=== PATIENT | female | born 1945 | race Caucasian/White ===

== ENCOUNTER 2019-08-11 14:49 | Inpatient (IN) ==
[2019-08-11] MEDS ORDERED: DUONEB (A & A) INH ONE (15:04)
--- NOTE | 2019-08-11 15:11 | PROVIDER DOCUMENTATION ---
HPI-General Adult - General Chief Complaint: Shortness of Breath Stated Complaint: SOB Time Seen by Provider: 08/11/19 15:25 Source: patient, family (sister) Allergies/Adverse Reactions: Patient Allergies Allergy/AdvReac Type Severity Reaction Status Date / Time ampicillin AdvReac RASH Verified 08/11/19 14:45 Home Medications: Home Medication List Medication Instructions Recorded Confirmed Last Taken Type Albuterol [Albuterol Neb] 2.5 mg INH [id number] 08/11/19 08/11/19 Unknown History Alendronate [Fosamax] 70 mg PO Q7D 08/11/19 08/11/19 Unknown History Benzonatate 200 mg PO TID 08/11/19 08/11/19 Unknown History CefDINIR [Omnicef] 300 mg PO BID 08/11/19 08/11/19 Unknown History Mupirocin Cream [Bactroban Cream] 1 applicatn TOP TID 08/11/19 08/11/19 Unknown History Phenylephrine HCl/Prometh HCl 2 tsp PO PRN PRN 08/11/19 08/11/19 Unknown History [Promethazine Vc Syrup] Phenytoin [Dilantin] 100 mg PO TID 08/11/19 08/11/19 Unknown History Primidone [Mysoline] 250 mg PO DAILY 08/11/19 08/11/19 Unknown History Ranitidine HCl 150 mg PO BID 08/11/19 08/11/19 Unknown History - History of Present Illness -Gen Adult Nature of Presenting Problems: pt with h/o seizures, copd on 3 liter home 02 is being evaluated here today after a fall today. Sister states she ambulated to the bathroom on a walker and hard a fall. Patient is awake, hard of hearing and could not states why and how she fell. She reports pain to the left hip which was previous site of surgery. She is noted to be tachycardia with pulse ox in the 80s on 3 to 4 liters Location of Pain/Injury: reports: lower extremity Quality of Pain: reports: aching, stabbing Onset/Duration: reports: 1-3 hours ago Timing: reports: still present Modifying Factors: improves with: nothing Associated Symptoms: reports: shortness of breath Similar Symptoms Previously?: Yes Recently seen or treated by another doctor?: Yes Review of Systems - Adult - REVIEW OF SYSTEMS - ADULT Constitutional: reports: no symptoms reported Eyes: reports: no symptoms reported Ears, Nose, Mouth & Throat: reports: no symptoms reported Cardiovascular: reports: no symptoms reported Respiratory: reports: shortness of breath. denies: cough, hemoptysis Gastrointestinal: reports: no symptoms reported Genitourinary: reports: no symptoms reported Musculoskeletal: reports: see HPI Integumentary: reports: no symptoms reported Neurological: reports: no symptoms reported Psychiatric: reports: no symptoms reported Endocrine: reports: no symptoms reported Hematologic/Lymphatic: reports: no symptoms reported Allergic/Immunologic: reports: no symptoms reported All Other Systems: Reviewed and Negative Past History - Adult - PAST MEDICAL HISTORY-ADULT Review of Records: reports: Nursing Assessment Review, Medications Reviewed, Social history reviewed & non-contributory. Major Childhood Illnesses: reports: other (meningitis, childhood leaving to residual seizures) Cardiovascular: reports: denies history Respiratory: reports: COPD Genitourinary: reports: denies history Musculoskeletal: reports: other (s/p R hip surgery) Neurological: reports: denies history Psychiatric: reports: denies history Endocrine/Immune: reports: denies history - PRIOR SURGERIES/PROCEDURES Surgical/Procedure History: reports: joint replacement - FAMILY HISTORY Family History: reviewed, not pertinent - SOCIAL HISTORY Smoking: quit greater than 1 year (used to be a heavy smoker) Substance Use: none/never Alcohol Use Frequency: never Living Situation: family Physical Exam-General - PHYSICAL EXAM-ADULT Initial Vital Signs Reviewed: Yes - CONSTITUTIONAL General Appearance: alert, mild distress - EYES Eyes: PERRL/EOMI - HEAD, EARS, NOSE, MOUTH & THROAT HENMT: normocephalic/atraumatic, other (slightly dry oral mucosa) - NECK Neck: non-tender, full range of motion - RESPIRATORY Respiratory: chest non-tender, decreased breath sounds - CARDIOVASCULAR Cardiovascular: regular rate, rhythm, no edema, tachycardia - GASTROINTESTINAL (ABDOMEN) Abdominal Exam: non tender, soft, no organomegaly - MUSCULOSKELETAL Back Exam: normal inspection, no CVA tenderness, no vertebral tenderness Extremity: non-tender, no pedal edema - SKIN Integumentary: normal color - NEUROLOGIC Neurologic: motorized squad captain II-XII nml as tested - PSYCHIATRIC Psych/Mental Status: oriented x 3 Progress - PLAN OF CARE/RESULTS Progress/Plan/Lab Results: Vital Signs - 8 hr 08/11/19 14:45 Temperature 98.9 F Pulse Rate 106 H Respiratory Rate 33 H Blood Pressure 127/78 O2 Sat by Pulse Oximetry 88 L Orders Category Date Time Status Cardiac Monitoring DIRECTED Care 08/11/19 14:53 Active IV Insertion ORDERED Care 08/11/19 14:53 Active Notify MD of + Sepsis Screen NOW Care 08/11/19 14:53 Active Notify Physician As Ordered Care 08/11/19 14:53 Active CHEST-1 VIEW [RAD] Stat Exams 08/11/19 14:53 Ordered XRAY HIP W/O PELVIS MANSOOR 3-4VWS [RAD] Stat Exams 08/11/19 15:01 Ordered ABG [RESP] Routine Lab 08/11/19 14:54 Ordered BLOOD CULTURE [BLDCUL] Stat Lab 08/11/19 14:53 Uncollected CBC WITH DIFF [HEME] Stat Lab 08/11/19 14:53 Uncollected CK PROFILE [SP CHEM] Stat Lab 08/11/19 14:53 Uncollected COMPREHENSIVE METABOLIC PANEL [CHEM] Stat Lab 08/11/19 14:53 Uncollected LACTATE, PLASMA [CHEM] Q3H Lab 08/11/19 15:00 Uncollected LACTATE, PLASMA [CHEM] Q3H Lab 08/11/19 18:00 Uncollected LACTATE, PLASMA [CHEM] Q3H Lab 08/11/19 21:00 Uncollected MAGNESIUM [CHEM] Stat Lab 08/11/19 14:54 Uncollected PROTIME WITH INR [COAG] Stat Lab 08/11/19 14:53 Uncollected PTT [COAG] Stat Lab 08/11/19 14:53 Uncollected TROPONIN T Stat Lab 08/11/19 14:53 Uncollected URINALYSIS W/POSS RFLX CULT [URINALYSIS] Stat Lab 08/11/19 14:53 Uncollected Albuterol 2.5MG/Ipratrop 0.5MG [Duoneb (A & A)] Med 08/11/19 15:04 Once 3 ml INH NOW ONE Aerosol Treatments Routine Oth 08/11/19 15:04 Ordered Aerosol Treatments Stat Oth 08/11/19 15:04 Ordered Oxygen Device Stat Oth 08/11/19 14:53 Active EKG [EKG] Stat Ther 08/11/19 15:01 Ordered Result Diagrams: 08/11/19 16:07 08/11/19 16:07 - REASSESSMENT Reassessment #1 Time Reassessed: 17:35 Status: improving (patient seen, needing up to 5 to 6 liter 02 NC to keep her spo2 to the 90,s. it sdesaturates to the mid to low 80s on 3 to 4 liters. will have her on bipap. Discussed her cxr and xray pelvis result and the need for admission and ortho culsult. Patient is okay with it. She is started on vanco only for now as she is developes severe rash to ampicillin. addition of zosyn, cefipine were considered) - XRAY 1 XRAY: Left XRAY Study: Hip (Department of Imaging Patient: SILVIOEDITHADM Date: 08/11/19#: [id number] : 1945DM [id number] Age/Sex: 73/FRoom/Bed: Loc: ED Ordering Physician: Sherwin Barriga MD Family Physician: None,PCP Reason for Procedure: fall with hip pain Signed EXAM: XRAY HIP W/PELVIS BILAT 3-4VWS 08/11/2019 HISTORY: fall with hip pain TECHNIQUE: AP pelvis and left hip COMMENT: There our fractures in the superior and inferior pubic ramus. The femora appear to be intact. IMPRESSION: Fractures of the left pubic rami as described. Electronically signed by Fredis Leiva 08/11/2019 3:36 PM) 2 XRAY Study: Chest ( EXAM: CHEST-1 VIEW 08/11/2019 HISTORY: SOB TECHNIQUE: AP portable upright at 1504 COMMENT: There are no previous studies. There is volume loss on the left and opacification of much of the left lung. There is patchy opacity present in the right upper and lower lobes. IMPRESSION: Pulmonary edema versus pneumonia. Pleural and parenchymal opacity on the left. Advise comparison with previous studies if available. Electronically signed by Fredis Leiva 08/11/2019 3:26 PM) - CONSULTS/PCP/HOSPITALIST Notification #1 *Consult/PCP/Hospitalist*: ZACHARY Kemp for hospitalist Time Discussed: 17:50 Consult Disposition: Admit (for hospitalist) #2 Consult: Roque Perkins Time Discussed: 17:35 Reason/Comments: pelvic fracture Consult Disposition: other (will see pt) Departure - Departure Date of Disposition Decision: 08/11/19 Time of Disposition Decision: 17:49 DIAGNOSIS: Hypoxemia Pneumonia Qualifiers: Pneumonia type: due to unspecified organism Laterality: bilateral Lung location: lower lobe of lung Qualified Code(s): J18.1 - Lobar pneumonia, unspecified organism Pubic ramus fracture Qualifiers: Encounter type: initial encounter Fracture type: closed Laterality: left Qualified Code(s): S32.592A - Other specified fracture of left pubis, initial encounter for closed fracture Disposition: ADMITTED INPATIENT 09 Certified Medical Emergency: Emergent Condition: Fair - Critical Care Note This patient required my direct & personal management of CC.: No Attestation - Physician/ JOHNSON Attestation Patient care was provided by Advanced Practice Provider:: No The physician spent face to face time with patient:: Yes Advanced Practice Provider documentation review:: Supervising physician onsite and consulted in the evaluation and care of this patient. The physician did have a face to face encounter with the patient.
[2019-08-11] MEDS ORDERED: ZOFRAN IM ONE (15:17)
[2019-08-11] MEDS ORDERED: MORPHINE IV ONE (15:17)
--- NOTE | 2019-08-11 15:29 | Diag Imaging Result Doc PS360 ---
EXAM: CHEST-1 VIEW 08/11/2019 HISTORY: SOB TECHNIQUE: AP portable upright at 1504 COMMENT: There are no previous studies. There is volume loss on the left and opacification of much of the left lung. There is patchy opacity present in the right upper and lower lobes. IMPRESSION: Pulmonary edema versus pneumonia. Pleural and parenchymal opacity on the left. Advise comparison with previous studies if available. Electronically signed by Fredis Leiva 08/11/2019 3:26 PM
[2019-08-11 15:37] LABS: URINE SOURCE CATH
--- NOTE | 2019-08-11 15:38 | Diag Imaging Result Doc PS360 ---
EXAM: XRAY HIP W/PELVIS BILAT 3-4VWS 08/11/2019 HISTORY: fall with hip pain TECHNIQUE: AP pelvis and left hip COMMENT: There our fractures in the superior and inferior pubic ramus. The femora appear to be intact. IMPRESSION: Fractures of the left pubic rami as described. Electronically signed by Fredis Leiva 08/11/2019 3:36 PM
[2019-08-11 15:39] LABS: BILIRUBIN URINE NEGATIVE (NEGATIVE); BLOOD URINE NEGATIVE (NEGATIVE); COLOR YELLOW; GLUCOSE URINE NEGATIVE (NEGATIVE); KETONE URINE NEGATIVE (NEGATIVE); LEUKOCYTES URINE TRACE (NEGATIVE); NITRITE URINE NEGATIVE (NEGATIVE); PH URINE 6.5; PROTEIN URINE 70 mg/dL (NEGATIVE); SP GRAVITY URINE 1.023; TURBIDITY URINE HAZY (CLEAR); UROBILINOGEN URINE NORMAL (NORMAL)
[2019-08-11 15:41] LABS: UR EPITHELIAL CELLS <10 /HPF (<10); URINE BACTERIA NEGATIVE /HPF; URINE WBC <10 /HPF (<10)
[2019-08-11 15:49] LABS: ALLEN TEST YES; BE 8.1 mmoll (-3.0-3.0); BLOOD TYPE ARTERIAL; HCO3-(ACT) 31.1 mmoll (20.0-26.0); METHB 0.8 % (0.0-1.5); O2HB 90.1 % (95.0-99.0); PCO2(98.6) 49 mmHg (35-45); PO2(98.6) 57 mmHg (60-100); SAMPLE BLOOD; SAO2 92.2 % (95.0-100.0); THB 10.2 g/dL (11.5-17.4); pH(98.6) 7.44 (7.35-7.45)
[2019-08-11 15:50] LABS: MODALITY CANNULA
[2019-08-11 16:28] LABS: BASO# 0.04 X1000 (0.0-0.2); BASO% 0.2 % (0.0-0.8); HEMATOCRIT 32.3 % (37.0-47.0); HEMOGLOBIN 9.9 g/dL (12.0-16.0); IMM GRAN# 0.21 X1000 (0.0-0.04); LYMPH# 1.71 X1000 (1.2-3.4); LYMPH% 8.4 % (20.5-51.1); MCH 26.8 PG (27-31); MCHC 30.7 g/dL (33-37); MCV 87.5 FL (81-99); MONO# 2.98 X1000 (0.11-0.59); MONO% 14.6 % (1.7-9.3); MPV 9.1 FL (7.4-10.4); NEUT# 15.52 X1000 (1.4-6.5); NEUT% 75.8 % (42.2-75.2); PLT 352 X1000 (130-400); RBC 3.69 XMIL (4.2-5.4); RDW 16.3 % (11.5-14.5); WBC 20.46 X1000 (4.8-10.8)
[2019-08-11 16:33] LABS: INR 1.43; PROTIME 17.7 Seconds (11.0-16.0)
[2019-08-11 16:45] LABS: AGAP 14; ALBUMIN 3.1 g/dL (3.5-5.0); ALKALINE PHOSPHATASE 75 U/L (32-104); BUN 14 mg/dL (8-22); CALCIUM 8.8 mg/dL (8.8-10.2); CHLORIDE 97 mmol/L (98-107); CK PROFILE 30 U/L (24-173); COSMO 283; CREATININE 0.5 mg/dL (0.5-0.9); ESTIMATED GFR > 60; GLUCOSE 115 mg/dL (70-104); GOT 26 U/L (10-30); GPT 14 U/L (10-36); MAGNESIUM 2.1 mg/dL (1.5-2.7); POTASSIUM 3.6 mmol/L (3.5-5.1); SODIUM 141 mmol/L (136-145); TCO2 30 mmol/L (25-35); TOTAL BILIRUBIN 0.31 mg/dL (0.20-1.00); TOTAL PROTEIN 6.1 g/dL (6.3-8.3)
[2019-08-11 16:55] LABS: PTT 36.6 Seconds (22.3-41.8)
[2019-08-11] MEDS ORDERED: LEVAQUIN 750 MG/D5W 750 MG/150 ML IVPB IV ONE (17:05)
[2019-08-11] MEDS ORDERED: VANCOMYCIN 1 GM/NS 1 GM/250 ML IVPB IV ONE (17:12)
[2019-08-11] MEDS ORDERED: VANCOMYCIN IV PER PHARMACY MISC SCH (18:00)
[2019-08-11] MEDS: NS 1,000 ML IV SCH (18:50)
[2019-08-11] MEDS: MAXIPIME 1 GM in NS 50 ML IV SCH (18:51)
[2019-08-11] MEDS: MUCOMYST 20% INH SCH (19:16)
[2019-08-11] MEDS: PULMICORT INH SCH (19:16)
[2019-08-11] MEDS: ATROVENT NEB INH SCH ×2 (19:16→23:10)
[2019-08-11] MEDS: XOPENEX NEB INH SCH ×2 (19:16→23:10)
--- NOTE | 2019-08-11 19:32 | HISTORY AND PHYSICAL ---
PRIMARY CARE PROVIDER: Dimitris Zaman. CHIEF COMPLAINT: Fall with hip pain, and congestion, shortness of breath, and weakness. HISTORY OF PRESENT ILLNESS: Ms. Kiki Francisco is a 73-year-old, female, with a medical history of COPD, on continuous 3 L of oxygen. Also, history of meningitis when she was 1 years old, which has caused her to have seizures, with her last one being 4 months ago. She also has frequent falls. She is hard of hearing, has cataracts and macular degeneration. Apparently, 2 days ago, she had a fall in the bathroom and since then, she has really not gotten around as well. She would moan in pain when she would get up to use the restroom. She lives with her sister who noticed that today she was specifically very weak and short of breath. She called an ambulance and she was found to have lower O2 saturations in the 80s and they brought her here. The increased her oxygen. It is noted that she has been having some really thick, green phlegm. Denies fever. The sister did state that yesterday, she had called the patient's physician who then called her in an antibiotic, cefdinir, which she initially started last night, so she took a dose last night and this morning. Imaging obtained reveals that she has a fracture of the left pubic rami and then on the chest x-ray, she has pulmonary edema versus pneumonia. She was started on antibiotics. Dr. Perkins is aware of the pubic rami fracture. The D-dimer is elevated with normal kidney functions. We are going to send her for CTA of the lungs. We will also scan her lower extremities to rule out DVT. She is requiring a lot more oxygen. We will treat her COPD. We will consult Pulmonology and it could be possible that she might need BiPAP. PAST MEDICAL HISTORY: 1. COPD, on 3 L of oxygen. 2. At 1 years old, meningitis. 3. Seizures since she was 1 years old, with the last being 4 months ago. On antiepileptic drugs. 4. GERD. 5. Falls. 6. Cataracts. 7. Macular degeneration. 8. Hard of hearing. 9. Anorexia. SURGICAL HISTORY: 1. She had exploratory laparoscopy for abdominal abscess 25 years ago. 2. Left femoral fracture repair. SOCIAL HISTORY: She has been using a walker for about 10 years. She lives with her sister. She quit smoking 12 years ago. She was a heavy smoker and started in her youth. No illicit drug use. No alcohol. FAMILY HISTORY: Mother had brain aneurysm. Father had lung cancer. ALLERGIES: Amoxicillin causes a rash. HOME MEDICATIONS: 1. Albuterol inhaled 4 times a day. 2. Bactroban topical 3 times a day. 3. Benzonatate 200 mg p.o. t.i.d. 4. Dilantin 100 mg p.o. twice daily. 5. Fosamax 70 mg p.o. every 7 days. 6. Primidone 250 mg p.o. daily. 7. Cefdinir 300 mg p.o. twice daily. 8. Promethazine syrup 2 teaspoons p.o. as needed. 9. Ranitidine 150 mg p.o. twice daily. REVIEW OF SYSTEMS: A 14-point review of systems is complete and all were negative, except for those mentioned above in HPI. PHYSICAL EXAMINATION: VITAL SIGNS: Temperature 98.9 degrees, heart rate 106, respiratory rate 30, blood pressure 139/69, O2 saturation 97% on 6 L nasal cannula, and in the room while I was there, she was 98% to 99% with a good waveform. She was just tachypneic. GENERAL: Ms. Kiki Francisco is a 73-year-old, female. She is very emaciated, does not really talk or answer questions much. She will look at you and smile. HEENT: Atraumatic, normocephalic. Pupils are equal and reactive. Extraocular movements intact. Mucous membranes are dry. NECK: Trachea midline. CARDIOVASCULAR: S1, S2. Tachycardic rate and rhythm. No rubs, gallops, murmurs. No lower extremity edema. Dorsalis and radial pulses 2+. Negative for JVD or carotid bruits. PULMONARY: Coarse bilaterally anterior upper and lower lobes. Tolerating 6 L nasal cannula. She is tachypneic. No accessory muscle use noted. There is some mild work of breathing. GASTROINTESTINAL: Soft, nontender, nondistended. Positive bowel sounds x4. EXTREMITIES: Decreased range of motion of all extremities, specifically in the lower extremities. SKIN: Warm, dry, intact. NEUROLOGIC: She is oriented to name, that is about it. LABORATORY DATA: White blood cells 20,000, hemoglobin 9, hematocrit 32, platelet count 352,000. INR is 1.43, PTT is 36.6. D-dimer is 2.85. ABGs, pH 7.44, pCO2 of 49, PO2 of 57, bicarbonate 31, base excess 8, saturation 90%, lactate 1.0. This is on 4 L nasal cannula. Sodium 141, potassium 3.6, BUN 14, creatinine 0.5, glucose 115, calcium 8.8, magnesium 2.1, bilirubin 0.31, AST 26, ALT 14. CK 30, troponin less than 0.01. ProBNP 623. Albumin is 3.1. Serum lactate 1.4. Urinalysis, 70 protein, trace leukocytes, less than 10 white blood cells, 10 to 20 red blood cells, and bacteria is negative. IMAGING: Chest x-ray: Pulmonary edema versus pneumonia. There is also volume loss on the left and opacification of much of the left lung. There is pleural and parenchymal opacity on the left. Hip and pelvic x-ray: Fractures of the left pubic rami. ASSESSMENT AND PLAN: 1. Acute on chronic hypoxemic respiratory failure requiring increased oxygen needs, likely secondary to pneumonia, but could be pulmonary emboli as the D-dimer is elevated, but we currently have no imaging to review for that. We are going to do antibiotics, nebulizers, and steroids. We will also consult Pulmonary, and if needed, we can do BiPAP. She has mild work of breathing. She is a little tachypneic as well. 2. Chronic obstructive pulmonary disease exacerbation, primarily with hypoxia and some CO2 retention as well. Continue oxygen therapy, nebulizers, and steroids. 3. Elevated D-dimer in the setting of someone that is not very active that had an acute shortness of breath. So, we are going to get a pulmonary CTA to rule out pulmonary embolus. We will also get lower extremity venous ultrasound. Depending on results, we will start anticoagulation if needed. 4. On the chest x-ray, there is a left opacity on the lung and we are going to follow up with the CTA. 5. History of seizures. Continue Dilantin. 6. Gastroesophageal reflux disease. Continue ranitidine. 7. Frequent falls and frequent fractures in the past. 8. Left pubic rami fracture. Dr. Perkins is aware. Currently, she is bedrest with a Stephenson catheter. 9. She just appears like she could possibly have issues with swallowing, although they deny it, so we will get a swallow evaluation. 10. Hard of hearing, cataracts, and macular degeneration. 11. Anorexia with protein-calorie malnutrition. We will advance her diet as tolerated depending on her swallow. Dictated by LATIA Echevarria for Frank Cho MD cc: LATIA Echevarria MD
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
[2019-08-11] MEDS: SOLU-MEDROL IV SCH (20:21)
[2019-08-11] MEDS: PEPCID PO SCH (21:21)
[2019-08-11] MEDS: TYLENOL PO PRN (21:21)
--- NOTE | 2019-08-11 21:24 | Diag Imaging Result Doc PS360 ---
EXAM: CT ANGIOGRM PULMONARY ARTERIES 08/11/2019 HISTORY: sob; hypoxia; elevated d-dimer TECHNIQUE: This exam was performed using automated exposure control, adjustment of mA or kV according to patient size, and/or use of iterative reconstruction technique. COMMENT: There are no previous studies. 3-D MIPS were performed. There is a left upper lobe parahilar mass measuring over 4 cm in diameter with postobstructive pneumonia. There is a loculated pleural effusion posteriorly. There is debris within the bronchi on the left and partial opacification of the left lower lobe. There is also opacification of the right lower lobe. There is no evidence of pulmonary emboli. The mediastinum is displaced to the left. The aorta is not distended and there is no evidence of dissection. There are multiple calcified nodes present in the right hilum. There is bilateral adrenal hyperplasia. There are granulomata in the liver and spleen. There is COPD. There is some suggestion of interstitial pulmonary edema in the right upper lobe middle lobe and unopacified portions of the lower lobe. There are some old rib fractures bilaterally. There is no evidence of acute bony abnormality. IMPRESSION: Bilateral lower lobe pneumonia. Left upper lobe mass and postobstructive pneumonitis. Electronically signed by Fredis Leiva 08/11/2019 9:22 PM
[2019-08-12] MEDS: XOPENEX NEB INH SCH ×6 (03:05→23:31)
[2019-08-12] MEDS: ATROVENT NEB INH SCH ×6 (03:05→23:31)
[2019-08-12] MEDS: SOLU-MEDROL IV SCH (04:12)
[2019-08-12 04:33] LABS: ALLEN TEST YES; BE 7.1 mmoll (-3.0-3.0); BLOOD TYPE ARTERIAL; HCO3-(ACT) 30.5 mmoll (20.0-26.0); METHB 0.5 % (0.0-1.5); O2(CT) 12.6 mL/dL (15.0-23.0); O2HB 97.1 % (95.0-99.0); PO2(98.6) 141 mmHg (60-100); SAMPLE BLOOD; SAO2 98.3 % (95.0-100.0); pH(98.6) 7.25 (7.35-7.45)
[2019-08-12 04:36] LABS: MODALITY PRB; PCO2(98.6) 82 mmHg (35-45)
[2019-08-12] MEDS: MAXIPIME 1 GM in NS 50 ML IV SCH ×2 (06:12→17:46)
[2019-08-12 06:59] LABS: AGAP 11; ALB/GLOB RATIO 0.7; ALBUMIN 2.6 g/dL (3.5-5.0); ALKALINE PHOSPHATASE 115 U/L (32-104); BUN 12 mg/dL (8-22); CALCIUM 8.5 mg/dL (8.8-10.2); CHLORIDE 101 mmol/L (98-107); COSMO 280; CREATININE 0.4 mg/dL (0.5-0.9); ESTIMATED GFR > 60; GLUCOSE 121 mg/dL (70-104); GOT 23 U/L (10-30); GPT 13 U/L (10-36); POTASSIUM 3.9 mmol/L (3.5-5.1); SODIUM 140 mmol/L (136-145); TCO2 28 mmol/L (25-35); TOTAL BILIRUBIN 0.21 mg/dL (0.20-1.00); TOTAL PROTEIN 6.5 g/dL (6.3-8.3)
[2019-08-12 07:05] LABS: BASO# 0.02 X1000 (0.0-0.2); BASO% 0.1 % (0.0-0.8); HEMATOCRIT 32.5 % (37.0-47.0); HEMOGLOBIN 9.7 g/dL (12.0-16.0); IMM GRAN# 0.13 X1000 (0.0-0.04); IMM GRAN% 0.8 % (0.0-0.5); LYMPH# 0.91 X1000 (1.2-3.4); LYMPH% 5.5 % (20.5-51.1); MCH 26.8 PG (27-31); MCHC 29.8 g/dL (33-37); MCV 89.8 FL (81-99); MONO# 1.33 X1000 (0.11-0.59); MPV 9.2 FL (7.4-10.4); NEUT% 85.6 % (42.2-75.2); PLT 325 X1000 (130-400); RBC 3.62 XMIL (4.2-5.4); RDW 16.6 % (11.5-14.5); WBC 16.69 X1000 (4.8-10.8)
[2019-08-12 08:21] LABS: ALLEN TEST YES; BE 4.9 mmoll (-3.0-3.0); BLOOD TYPE ARTERIAL; HCO3-(ACT) 28.7 mmoll (20.0-26.0); METHB 0.4 % (0.0-1.5); O2(CT) 16.1 mL/dL (15.0-23.0); O2HB 96.6 % (95.0-99.0); PO2(98.6) 90 mmHg (60-100); SAMPLE BLOOD; SAO2 98.5 % (95.0-100.0); SRATE 15 BPM; THB 11.8 g/dL (11.5-17.4); pH(98.6) 7.36 (7.35-7.45)
[2019-08-12 08:23] LABS: MODALITY BI PAP
[2019-08-12 08:26] LABS: PCO2(98.6) 56 mmHg (35-45)
[2019-08-12] MEDS: MUCOMYST 20% INH SCH ×2 (08:33→19:44)
[2019-08-12] MEDS: PULMICORT INH SCH ×2 (08:33→19:44)
--- NOTE | 2019-08-12 10:03 | PROVIDER PROGRESS NOTE ---
Progress Note Pulmonary additional note: Full Consult dictation to follow. I have seen the case, reviewed the EMR, labs, latest images and other medical teams notes. Also reviewed the PIPELAYING FITTER notes and signed necessary form(s). I have noted changes in condition if any from yesterday and did orders if needed. Please see also signed progress sheet. Prognosis: Guarded for now. Improving with Bipap I reviewed Dr. Godfrey and LATIA Echevarria notes. CT images seen. Respiratory failure. Lung mass and COPD. Will review further best route for biopsy wether CT guided or bronchoscopy. Will decide once more stable. This was discussed with her sister. I asked senior staff specialized employment about condition changes and if they have any needs in regard to today conditions. I spent 32 minutes in this process.
[2019-08-12] MEDS: BACTROBAN CREAM TOP SCH ×3 (10:09→17:46)
[2019-08-12] MEDS: PEPCID PO SCH ×2 (10:10→21:11)
[2019-08-12] MEDS: DILANTIN PO SCH ×3 (10:10→17:46)
[2019-08-12] MEDS: MYSOLINE PO SCH (10:10)
--- NOTE | 2019-08-12 10:39 | PROGRESS NOTE ---
DATE: 08/12/2019 SUBJECTIVE: This patient had a tough night. Apparently, she was not able to sleep too good because she needed to use the BiPAP machine, and her cough. Her phlegm is quite thick. She is sleepy at this moment, but arousable, but she is falling asleep right away. We did a CT angiogram yesterday that showed bilateral lower lobe pneumonia and also showed a left upper lobe mass and postobstructive pneumonitis. I discussed the case with the Power of Recooperer, who is at the bedside, and after discussing the case for more than 20 minutes, she has decided to code this patient DO NOT RESUSCITATE. Also, I will consult Palliative Care to evaluate this patient. The Power of Recooperer does not want to do any kind of invasive procedure for this patient, but she wants to get treatment for the pneumonia to see if she can get somehow better. OBJECTIVE: Vital Signs: Temperature 97.8 degrees, pulse 92, respiratory rate 25, blood pressure 103/54, oxygen saturation 97% on the BiPAP machine. HEENT: Head normocephalic. No trauma. Neck: Supple. No JVD. No masses. Central trachea. Chest: Decreased breath sounds on the left side with crepitus. Bilateral lower lobe rhonchi. Coarse breath sounds on the left side as well. Abdomen: Soft, nontender, nondistended. No hepatosplenomegaly. Extremities: No edema, no clubbing, no cyanosis. Neurological: The patient is sleepy at this moment. Yesterday, she was oriented only to name. LABORATORY DATA: WBC 16.6, hemoglobin 9.7, hematocrit 32.5, platelets 325,000. Sodium 140, potassium 3.9, chloride 101, bicarbonate 28, BUN 12, creatinine 0.4, glucose 121, calcium 8.5, albumin 2.6. ASSESSMENT AND PLAN: 1. Sepsis due to pneumonia. Will continue with broad-spectrum antibiotics. Also, will continue with intravenous fluids. Vital signs are stable, except that she is tachypneic and on and off tachycardic. Breathing treatment, oxygen supplementation. 2. Left upper lobe mass and postobstructive pneumonitis. This is likely malignancy. I discussed the case with her Power of Recooperer, who is at the bedside, and after discussing with her about advanced directive for more than 20 minutes, she has decided to put this patient DO NOT RESUSCITATE and consult Palliative Care. Likely, this patient will be discharged once she is a little bit better, to home with hospice. 3. Bilateral lower lobe pneumonia. Continue with broad-spectrum antibiotics. 4. History of chronic obstructive pulmonary disease, on home oxygen, around 3 liters. Continue with the same treatment, breathing treatment. I have decreased the dose of the steroids. She is not wheezing today. 5. Elevated D-dimer with negative CT angiogram. No pulmonary embolism. 6. History of seizures. Continue with Dilantin. 7. Gastroesophageal reflux disease. Continue with ranitidine. 8. Frequent falls. Aware. 9. Left pubic rami fracture. I do not think she is going to get any kind of intervention. We will monitor. 10. This patient is DO NOT RESUSCITATE level 1. 11. Anorexia with severe protein calorie malnutrition. Aware. 12. This patient is hard of hearing. She has cataracts and macular degeneration. Her prognosis is poor. She does have a left upper mass. The Power of Recooperer does not want to do any kind of aggressive intervention. No biopsy. She wants to treat the pneumonia, and Palliative Care will be on board. cc: Frank Cho MD
--- NOTE | 2019-08-12 10:46 | ORTHOPAEDICS CONSULTATION ---
DATE: 08/12/2019 CHIEF COMPLAINT: Pelvic pain. HISTORY OF PRESENT ILLNESS: This is a 73-year-old female who fell, was admitted to the hospital for pneumonia, and I was asked to see her for her pelvic fractures that they diagnosed on x-ray. She was initially diagnosed with pneumonia, but has subsequently been found to have a pulmonary mass. The family has decided to just perform palliative care. PAST MEDICAL HISTORY: See admission history and physical. PAST SURGICAL HISTORY: See admission history and physical. MEDICATIONS: See admission history and physical. ALLERGIES: See admission history and physical. REVIEW OF SYSTEMS: Negative, except as noted above. PHYSICAL EXAMINATION: Examination of her hip reveals no pain significantly with range of motion. Her legs are neurovascularly intact. IMAGING: Reviewing her x-rays shows nondisplaced superior and inferior rami fractures on the left. IMPRESSION: Left nondisplaced superior and inferior rami fractures. PLAN: I do not think she needs any further orthopedic care. She can weight bear as tolerated if she is able. We can get Physical Therapy to work with her if need be, but due to her other medical issues and the fact that she is on palliative care, it may be that there is nothing further to add at this time. I discussed this with the family and consoled them. cc: Man Perkins MD
[2019-08-12 10:49] LABS: BANDS 8 % (0-1); HYPOCHROM 2+; LYMPHS 4 % (21-51); MONO 6 % (1-9); NRBC 1 % (0-0); SEGS 82 % (42-75)
[2019-08-12] MEDS: NS 1,000 ML IV SCH ×2 (12:02→21:11)
--- NOTE | 2019-08-12 17:38 | EKG Report ---
Test Performed on : 08/12/2019 07:16:17 AM Test Reason : CP Blood Pressure : / mmHG Vent. Rate : 086 BPM Atrial Rate : 086 BPM P-R Int : 134 ms QRS Dur : 084 ms QT Int : 366 ms P-R-T Axes : 073 -35 044 degrees QTc Int : 437 ms Sinus rhythm. with premature supraventricular complexes. Left axis deviation Septal infarct , age undetermined Abnormal ECG No previous ECGs available Unconfirmed Result
--- NOTE | 2019-08-12 21:33 | CONSULTATION ---
DATE OF CONSULTATION: 08/12/2019 CHIEF COMPLAINT: Shortness of breath and weakness. HISTORY OF PRESENT ILLNESS: This is a 73-year-old female with a medical history of meningitis, seizure disorder and COPD on continuous supplemental O2 at 3 L. The patient had been having progressive shortness of breath with O2 saturation dropping into the 80s prior to hospital admit. Recent chest x-ray revealed pulmonary edema versus pneumonia with volume loss on the left and opacification of much of the left lung. PAST MEDICAL HISTORY: 1. COPD on 3 L of oxygen. 2. Meningitis at age 20 years old. 3. Seizures since she was 1. Last one 4 months ago. 4. GERD. 5. Cataracts. 6. Macular degeneration. 7. Hard of hearing. 8. Anorexia. SURGICAL HISTORY: 1. Exploratory laparoscopy for abdominal abscesses 25 years ago. 2. Left femoral fracture repair. SOCIAL HISTORY: Uses a walker for ambulation. Lives with her sister. Past smoker 12 years ago. No illicit drug use or alcohol use. FAMILY HISTORY: Brain aneurysm in her mother. Father had lung cancer. ALLERGIES: Amoxicillin causing a rash. HOME MEDICATIONS: Please see home reconciliation list. REVIEW OF SYSTEMS: A 10-point review of systems was completed and the pertinent is listed within the HPI, otherwise noncontributory. PHYSICAL EXAMINATION: VITAL SIGNS: Blood pressure 113/56, pulse 94, respirations 20, temperature 97.9, O2 saturation 100% on BiPAP 16/6. GENERAL: This is a 73-year-old female resting in bed with BiPAP in use. Moderate distress noted. HEENT: Head is atraumatic, normocephalic. Pupils are equal and reactive to light and accommodation. Mucous membranes dry. NECK: Trachea midline. Neck is supple. CARDIOVASCULAR: S1, S2 auscultated. No gallops, murmurs or rubs. RESPIRATORY: Coarse bilateral diminished breath sounds. Some mild work at breathing. GASTROINTESTINAL: Soft, nontender, nondistended. Positive breath sounds in all 4 quadrants. SKIN: Warm, dry and intact. NEUROLOGIC: Oriented to name. LABORATORY DATA: PH 7.36. PCO2 of 56. PO2 of 90. Bicarbonate 28.7. Oxyhemoglobin 96.6. Sodium 140. Potassium 3.9. Chloride 101. White blood cells 16.69. Platelets 325,000. Hemoglobin 9.7. Hematocrit 32.5. ProBNP 623. Albumin 3.1. Serum lactate 1.4. CK 30. Troponin less than 0.01. AST 26. ALT 14. Calcium 8.8. IMAGING: As mentioned in the HPI. Awaiting CTA scan. ASSESSMENT AND PLAN: 1. Acute on chronic hypoxemic respiratory failure secondary to pneumonia. Continue antibiotics, and bronchodilators, and supplemental O2 and BiPAP therapy. 2. Chronic obstructive pulmonary disease. Continue bronchodilators and supplemental O2. 3. Lung mass. We will review further best route for biopsy whether CT guided or bronchoscopy. We will decide once more stable. Thank you for the courtesy of this consult. Dictated by LATIA Kirk for Cooper Toledo MD cc: LATIA Kirk MD
[2019-08-13] MEDS: TYLENOL PO PRN ×2 (03:08→23:13)
[2019-08-13] MEDS: ATROVENT NEB INH SCH ×6 (03:50→23:18)
[2019-08-13] MEDS: XOPENEX NEB INH SCH ×6 (03:51→23:18)
[2019-08-13] MEDS ORDERED: BLISTEX MEDICATED BERRY LIP BALM TOP PRN (04:43)
[2019-08-13 05:18] LABS: ALLEN TEST YES; BE 4.1 mmoll (-3.0-3.0); BLOOD TYPE ARTERIAL; METHB 0.9 % (0.0-1.5); O2(CT) 16.2 mL/dL (15.0-23.0); O2HB 93.4 % (95.0-99.0); PCO2(98.6) 45 mmHg (35-45); PO2(98.6) 68 mmHg (60-100); SAMPLE BLOOD; SAO2 95.2 % (95.0-100.0); THB 12.3 g/dL (11.5-17.4); pH(98.6) 7.42 (7.35-7.45)
[2019-08-13 05:19] LABS: MODALITY BI PAP
[2019-08-13] MEDS: MAXIPIME 1 GM in NS 50 ML IV SCH ×2 (05:33→18:09)
[2019-08-13] MEDS: PULMICORT INH SCH ×2 (07:19→19:30)
[2019-08-13 08:03] LABS: BASO# 0.02 X1000 (0.0-0.2); BASO% 0.1 % (0.0-0.8); EOS# 0.03 X1000 (0.0-0.7); EOS% 0.2 % (0.0-10.0); HEMATOCRIT 27.9 % (37.0-47.0); HEMOGLOBIN 8.4 g/dL (12.0-16.0); IMM GRAN# 0.16 X1000 (0.0-0.04); LYMPH# 1.42 X1000 (1.2-3.4); LYMPH% 9.2 % (20.5-51.1); MCH 26.5 PG (27-31); MCHC 30.1 g/dL (33-37); MONO% 10.4 % (1.7-9.3); NEUT# 12.14 X1000 (1.4-6.5); NEUT% 79.1 % (42.2-75.2); PLT 318 X1000 (130-400); RBC 3.17 XMIL (4.2-5.4); RDW 16.4 % (11.5-14.5); WBC 15.37 X1000 (4.8-10.8)
[2019-08-13 08:34] LABS: AGAP 12; ALB/GLOB RATIO 0.7; ALBUMIN 2.3 g/dL (3.5-5.0); ALKALINE PHOSPHATASE 64 U/L (32-104); BUN 8 mg/dL (8-22); CHLORIDE 101 mmol/L (98-107); COSMO 277; CREATININE 0.3 mg/dL (0.5-0.9); ESTIMATED GFR > 60; GLUCOSE 85 mg/dL (70-104); GOT 23 U/L (10-30); GPT 14 U/L (10-36); SODIUM 140 mmol/L (136-145); TCO2 27 mmol/L (25-35); TOTAL BILIRUBIN 0.27 mg/dL (0.20-1.00); TOTAL PROTEIN 5.6 g/dL (6.3-8.3)
[2019-08-13] MEDS: MYSOLINE PO SCH (09:17)
[2019-08-13] MEDS: DILANTIN PO SCH ×3 (09:17→18:09)
[2019-08-13] MEDS: PEPCID PO SCH ×2 (09:18→21:14)
[2019-08-13] MEDS: SOLU-MEDROL IV SCH (09:18)
[2019-08-13] MEDS: BACTROBAN CREAM TOP SCH ×3 (09:35→18:09)
[2019-08-13] MEDS: MUCOMYST 20% INH SCH ×2 (11:20→19:30)
--- NOTE | 2019-08-13 16:44 | PROVIDER PROGRESS NOTE ---
Progress Note Dr. Toledo Progress Note/Pulmonary and or critical care We appreciated progress of care, Complications, change in diagnosis, and instructions to patient under direct supervision of Dr. Toledo. Subjective: We note the level of consciousness, bed (chair) position, family presence (if any), level of lethargy, feeling of symptoms, and changes from baseline condition/symptom. The patient is lethargic. She is on NRB. Sister at the bedside. She reports that pt just took pain medicine. Sister reports patient took senna at home for constipation. Vital Signs: We reviewed EMR current values for Pulse rate, Blood pressure, Pulse rate, respiratory rate and Pulse oximetry. Also noted other values and trends if present (e.g. I/O, CVP). Vital Signs 08/12/19 19:43 08/12/19 19:55 08/13/19 04:00 Temperature 98.1 F 98.8 F Pulse Rate 66 94 H 100 H Respiratory Rate 20 21 16 Blood Pressure 125/66 120/57 O2 Sat by Pulse Oximetry 96 97 98 08/13/19 07:19 08/13/19 07:56 08/13/19 12:50 Temperature 97.4 F L 98.0 F Pulse Rate 98 H 98 H 113 H Respiratory Rate 18 18 18 Blood Pressure 113/56 125/57 O2 Sat by Pulse Oximetry 92 L 96 92 L Intake & Output 08/12/19 08/13/19 08/13/19 19:59 07:59 19:59 Intake Total 316 / 1616 1300 / 1616 600 / 600 Balance 316 / 1616 1300 / 1616 600 / 600 Intake: Intake, IV Amount 266 / 966 700 / 966 600 / 600 Intake, IVPB 50 / 50 Intake, Oral Amount 600 / 600 Other: Number of Bowel Movements 0 Objective: General and HEENT: Trachea Midline. Chest: Reduced Entry. CVS: S1 S2. Abdomen: Bowel Sounds present. Non-tender. Soft. nondistended. Extremities: No pedal edema Neuro: Lethargic. Labs and Radiology: Reviewed available labs and radiology values available at time of EMR review. Dr. Toledo evaluated and additional note below. Evaluation time in minutes: Less than 30 minutes Assessment: DNRI Respiratory Failure, hypoxic and hypercapnic Lung mass COPD Left pubic rami fracture Anorexia with protein calorie malnutrition Plan Continue current treatment and supportive care per admitting and other teams on the case. Antibiotics Steroids Bronchodilators Appropriate DVT and GI prophylaxis Swallow evaluation Add senno for constipation. Input was appreciated from Admitting MD and other teams on the case.
[2019-08-13] MEDS: NS 1,000 ML IV SCH (18:09)
--- NOTE | 2019-08-13 18:15 | PROGRESS NOTE ---
DATE: 08/13/2019 SUBJECTIVE: No big changes compared with yesterday. She is using a nonrebreathing mask. She seems to be tired and sleepy. I had a conversation with her power of patent prosecution attorney at the bedside. She is basically lethargic. OBJECTIVE: Vital Signs: Temperature 98 degrees, pulse 113, respiratory rate 18, blood pressure 125/57, oxygen saturation 92 on a nonrebreathing mask. HEENT: Head normocephalic. No trauma. PERRLA. Neck: Supple. No JVD. No masses. Central trachea. Chest: Decreased breath sounds on the left side with crepitus. Bilateral lower lobe rhonchi. Coarse breath sounds on the left side as well. Abdomen: Soft, nontender, nondistended. No hepatosplenomegaly. Extremities: No clubbing. No cyanosis. Neurological: This patient is lethargic but slightly arousable. She did not follow commands for me today. LABORATORY: WBC 15.3, hemoglobin 8.4, hematocrit 27.9, platelets 318,000. Sodium 140, potassium 3, chloride 101, bicarbonate 27, BUN 8, creatinine 0.3, glucose 85, calcium 8, albumin 2.3. ASSESSMENT AND PLAN: 1. Sepsis due to pneumonia. We will continue with broad spectrum antibiotics. Also we will continue with IV fluids. She is a little bit tachycardic. Continue breathing treatments, oxygen supplementation. Pulmonary Department on board. 2. Left upper lobe mass and postobstructive pneumonitis. Likely this is malignancy. I discussed the case with her power of patent prosecution attorney who has been always at the bedside and this patient is DNR level 1. Palliative Care has been consulted and I talked to her today about hospice but she will think about it. 3. Bilateral lower lobe pneumonia. Continue broad-spectrum antibiotics. 4. History of chronic obstructive pulmonary disease, on home oxygen around 3 L. 5. Elevated D-dimer with negative CT angiogram. No pulmonary embolism. 6. History of seizures. Continue with Dilantin. 7. Gastroesophageal reflux disease. Continue with ranitidine. 8. Frequent falls. Aware. 9. Left pubic rami fracture. We will treat this patient medically. If she gets better, we can start doing some physical therapy, but she is extremely weak. 10. This patient is Do Not Resuscitate level 1. 11. Anorexia with severe protein calorie malnutrition. 12. This patient is hard of hearing, cataracts, and macular degeneration. 13. Her prognosis is really poor. She has a left upper lobe mass. The power of patent prosecution attorney does not want to do any kind of aggressive intervention, no biopsy. She wants to treat the pneumonia and Palliative Care will be on board. cc: Frank Cho MD
[2019-08-13] MEDS ORDERED: VANCOMYCIN 1 GM/NS 1 GM/250 ML IVPB IV SCH (20:00)
[2019-08-13] MEDS: SENOKOT PO SCH (21:15)
[2019-08-14] MEDS: XOPENEX NEB INH SCH ×6 (03:54→22:40)
[2019-08-14] MEDS: ATROVENT NEB INH SCH ×6 (03:54→22:40)
[2019-08-14] MEDS: NS 1,000 ML IV SCH ×2 (04:01→11:03)
[2019-08-14] MEDS: MAXIPIME 1 GM in NS 50 ML IV SCH ×2 (05:47→17:30)
[2019-08-14] MEDS: TYLENOL PO PRN ×2 (05:59→11:01)
[2019-08-14] MEDS: MUCOMYST 20% INH SCH ×2 (07:59→19:30)
[2019-08-14] MEDS: PULMICORT INH SCH ×2 (07:59→19:25)
[2019-08-14 08:04] LABS: BASO# 0.02 X1000 (0.0-0.2); BASO% 0.1 % (0.0-0.8); EOS# 0.11 X1000 (0.0-0.7); EOS% 0.7 % (0.0-10.0); HEMATOCRIT 29.5 % (37.0-47.0); IMM GRAN# 0.27 X1000 (0.0-0.04); IMM GRAN% 1.7 % (0.0-0.5); LYMPH# 1.37 X1000 (1.2-3.4); LYMPH% 8.6 % (20.5-51.1); MCH 26.7 PG (27-31); MCHC 30.5 g/dL (33-37); MCV 87.5 FL (81-99); MONO# 1.69 X1000 (0.11-0.59); MONO% 10.6 % (1.7-9.3); MPV 9.1 FL (7.4-10.4); NEUT# 12.45 X1000 (1.4-6.5); NEUT% 78.3 % (42.2-75.2); PLT 377 X1000 (130-400); RBC 3.37 XMIL (4.2-5.4); RDW 16.3 % (11.5-14.5); WBC 15.91 X1000 (4.8-10.8)
[2019-08-14 08:49] LABS: AGAP 18; ALB/GLOB RATIO 0.6; ALBUMIN 2.2 g/dL (3.5-5.0); ALKALINE PHOSPHATASE 84 U/L (32-104); BUN 5 mg/dL (8-22); CALCIUM 8.6 mg/dL (8.8-10.2); CHLORIDE 99 mmol/L (98-107); COSMO 279; CREATININE 0.3 mg/dL (0.5-0.9); ESTIMATED GFR > 60; GLUCOSE 65 mg/dL (70-104); GOT 19 U/L (10-30); GPT 11 U/L (10-36); POTASSIUM 2.7 mmol/L (3.5-5.1); SODIUM 142 mmol/L (136-145); TCO2 25 mmol/L (25-35); TOTAL BILIRUBIN 0.21 mg/dL (0.20-1.00); TOTAL PROTEIN 6.2 g/dL (6.3-8.3)
[2019-08-14] MEDS: SOLU-MEDROL IV SCH (08:58)
[2019-08-14] MEDS: DILANTIN PO SCH ×3 (08:59→17:30)
[2019-08-14] MEDS: SENOKOT PO SCH ×2 (08:59→22:26)
[2019-08-14] MEDS: PEPCID PO SCH ×2 (08:59→22:26)
[2019-08-14] MEDS: MYSOLINE PO SCH (08:59)
[2019-08-14] MEDS: BACTROBAN CREAM TOP SCH ×3 (09:00→22:26)
[2019-08-14 09:30] LABS: LYMPHS 12 % (21-51); SEGS 88 % (42-75)
[2019-08-14] MEDS ORDERED: POTASSIUM CHLORIDE 20% LIQUID PO ONE (11:25)
[2019-08-14] MEDS: NS + KCL 20 MEQ 1,000 ML IV SCH (12:54)
--- NOTE | 2019-08-14 13:09 | PROVIDER PROGRESS NOTE ---
Progress Note Dr. Toledo Progress Note/Pulmonary and or critical care We appreciated progress of care, Complications, change in diagnosis, and instructions to patient under direct supervision of Dr. Toledo. Subjective: We note the level of consciousness, bed (chair) position, family presence (if any), level of lethargy, feeling of symptoms, and changes from baseline condition/symptom. The patient is having dry cough. Sister at the bedside reports she just had a breathing treatment which makes her cough more. Patient is having lunch. She keeps stating I am full I want to sleep. Vital Signs: We reviewed EMR current values for Pulse rate, Blood pressure, Pulse rate, respi ratory rate and Pulse oximetry. Also noted other values and trends if present (e.g. I/O, CVP). Vital Signs 08/13/19 17:01 08/13/19 19:30 08/13/19 20:00 Temperature 98.1 F 99.1 F Pulse Rate 97 H 86 86 Respiratory Rate 19 19 Blood Pressure 132/59 145/68 O2 Sat by Pulse Oximetry 96 92 L 90 L 08/14/19 04:00 08/14/19 08:00 08/14/19 08:20 Temperature 99.5 F 98.5 F Pulse Rate 101 H 99 H 103 H Respiratory Rate 18 20 24 Blood Pressure 161/74 134/62 O2 Sat by Pulse Oximetry 95 96 96 08/14/19 13:10 Temperature 97.9 F Pulse Rate 121 H Respiratory Rate 28 H Blood Pressure 127/82 O2 Sat by Pulse Oximetry 93 L Intake & Output 08/13/19 08/14/19 08/14/19 19:59 07:59 19:59 Intake Total 1190 / 2390 1200 / 2390 600 / 600 Output Total 1974 Balance 315 / 415 100 / 415 600 / 600 Intake: Intake, IV Amount 950 / 1900 950 / 1900 600 / 600 Intake, IVPB 250 / 250 Intake, Oral Amount 240 / 240 0 / 240 Output: Output, Urine [place] Amount 1974 Other: Percent of Meal Consumed Bites Only Number of Bowel Movements 0 0 Objective: We examined the following systems General and HEENT: Trachea Midline. Chest: Reduced Entry. CVS: S1 S2. Abdomen: Bowel Sounds present. Non-tender. Soft. Non-distended. Extremities: No pedal edema Neuro: A/Ox2; speech fluent; follow simple commands at times; weakness present. Labs and Radiology: Reviewed available labs and radiology values available at time of EMR review. Laboratory Results 08/14/19 08/14/19 07:16 07:16 WBC 15.91 H RBC 3.37 L Hgb 9.0 L Hct 29.5 L MCV 87.5 MCH 26.7 L MCHC 30.5 L RDW Std Deviation 16.3 H Plt Count 377 MPV 9.1 Immature Gran % (Auto) 1.7 H Neut % (Auto) 78.3 H Lymph % (Auto) 8.6 L [place] % (Auto) 10.6 H Eos % (Auto) 0.7 Baso % (Auto) 0.1 Immature Gran # (Auto) 0.27 H Neut # (Auto) 12.45 H Lymph # (Auto) 1.37 [place] # (Auto) 1.69 H Eos # (Auto) 0.11 Baso # (Auto) 0.02 Segmented Neutrophils 88 H Lymphocytes 12 L Sodium 142 Potassium 2.7 L Chloride 99 Carbon Dioxide 25 Anion Gap 18 BUN 5 L Creatinine 0.3 L Estimated GFR/1.73 m2 > 60 BUN/Creatinine Ratio 17 Glucose 65 L Calculated Osmolality 279 Calcium 8.6 L Total Bilirubin 0.21 AST 19 ALT 11 Alkaline Phosphatase 84 Total Protein 6.2 L Albumin 2.2 L Globulin 4.0 Albumin/Globulin Ratio 0.6 Dr. Toledo evaluated and additional note below. Evaluation time in minutes: 10 minutes Assessment: DNRI Respiratory Failure, hypoxic and hypercapnic Lung mass COPD Left pubic rami fracture Anorexia with protein calorie malnutrition Plan Continue current treatment and supportive care per admitting and other teams on the case. Antibiotics Steroids Bronchodilators Appropriate DVT and GI prophylaxis Input was appreciated from Admitting MD and other teams on the case.
--- NOTE | 2019-08-14 14:18 | Extremity Venous Study ---
PROCEDURE NAME: Venous U/S Bilateral Legs - 08/12/2019 REQUESTING PROVIDER: Paulo. REPAIRER WOOD FURNITURE: Collette. INDICATIONS: Elevated D-dimer. EQUIPMENT: HALGI Vivid E9 ultrasound system a 9 L-D transducer. FINDINGS: Images of bilateral lower extremity venous systems were obtained in both sagittal and transverse planes. Doppler was used to evaluate veins for spontaneity, phasicity, respiratory excursion, and digital augmentation. RESULTS: Technically difficult study secondary to patient moving throughout the exam per the automotive technician instructor's note but no obvious superficial or deep venous thrombosis noted. INTERPRETATION: Technically difficult study secondary to patient movement but no obvious superficial or deep venous thrombosis noted. cc: MD Wanda Dick CRNP
--- NOTE | 2019-08-14 19:13 | PROGRESS NOTE ---
DATE: 08/14/2019 SUBJECTIVE: No big changes compared with yesterday. She is still using a nonrebreathing mask. She seems to be still tired and sleepy. Apparently, she is eating just some bites. Palliative Care on board. Power of district attorney at the bedside. OBJECTIVE: Vital Signs: Temperature 97.9 degrees, pulse 121, respiratory rate 28, blood pressure 127/82, oxygen saturation 93 on a nonrebreathing mask. HEENT: Head normocephalic, no trauma. PERRLA. Neck: Supple. No JVD. No masses. Central trachea. Chest: Decreased breath sounds on the left side with crepitus, bilateral lower lobe rhonchi, coarse breath sounds on the left side. Abdomen: Soft, nontender, nondistended. No hepatosplenomegaly. Extremities: No clubbing, no cyanosis. Neurological: The patient is lethargic, slightly arousable. As per the power of district attorney, she was able to wake up a little bit and take some bites of food but not for me. LABORATORY: WBC 15.9, hemoglobin 9, hematocrit 29.5, platelets 377,000. Sodium 142, potassium 2.7, chloride 99, bicarbonate 25, BUN 5, creatinine 0.3, glucose 65, calcium 8.6, albumin 2.2. ASSESSMENT AND PLAN: 1. Sepsis due to pneumonia. We will continue with broad-spectrum antibiotics and IV fluids. She is still tachycardic and tachypneic. Oxygen supplementation. Pulmonary Department on board. 2. Left upper lobe mass and postobstructive pneumonitis, likely this is malignancy. The case has been discussed with the power of district attorney, who has been always at the bedside. The patient is DO NOT RESUSCITATE. Palliative Care has been consulted. I already talked to the power of district attorney and the family about hospice, and they are thinking about it. 3. Bilateral lower lobe pneumonia. Continue with broad spectrum antibiotics. 4. History of chronic obstructive pulmonary disease on home oxygen around 3 L. 5. Elevated D-dimer with a negative CT angiogram. No pulmonary embolism. 6. History of seizures. Continue with Dilantin. 7. Gastroesophageal reflux disease. Continue with ranitidine. 8. Frequent falls, aware. 9. Left pubic rami fracture. We will treat this patient medically; no intervention. 10. Anorexia with severe protein-calorie malnutrition. 11. The patient is hard of hearing, cataracts and macular degeneration. 12. This patient is DNR level 1. Her prognosis is poor due to her age, malnutrition, left upper lobe mass. The power of district attorney does not want to do any kind of aggressive intervention including biopsy. We are going to treat this patient and try to keep this patient comfortable. Palliative Care on board. Honestly I would like to send this patient home with hospice. cc: Frank Cho MD
[2019-08-15] MEDS: TYLENOL PO PRN ×2 (01:17→14:52)
[2019-08-15] MEDS: NS + KCL 20 MEQ 1,000 ML IV SCH ×2 (03:00→17:06)
[2019-08-15] MEDS: ATROVENT NEB INH SCH ×6 (03:48→23:35)
[2019-08-15] MEDS: XOPENEX NEB INH SCH ×6 (03:48→23:35)
[2019-08-15] MEDS: MAXIPIME 1 GM in NS 50 ML IV SCH ×2 (05:19→17:12)
[2019-08-15 07:36] LABS: BASO# 0.01 X1000 (0.0-0.2); BASO% 0.1 % (0.0-0.8); EOS# 0.24 X1000 (0.0-0.7); EOS% 1.8 % (0.0-10.0); HEMATOCRIT 28.4 % (37.0-47.0); HEMOGLOBIN 8.6 g/dL (12.0-16.0); IMM GRAN# 0.27 X1000 (0.0-0.04); LYMPH# 1.36 X1000 (1.2-3.4); MCH 26.1 PG (27-31); MCHC 30.3 g/dL (33-37); MCV 86.3 FL (81-99); MONO# 1.03 X1000 (0.11-0.59); MONO% 7.6 % (1.7-9.3); MPV 8.9 FL (7.4-10.4); NEUT# 10.65 X1000 (1.4-6.5); NEUT% 78.5 % (42.2-75.2); PLT 412 X1000 (130-400); RBC 3.29 XMIL (4.2-5.4); RDW 16.1 % (11.5-14.5); WBC 13.56 X1000 (4.8-10.8)
[2019-08-15] MEDS: MUCOMYST 20% INH SCH ×2 (07:54→19:46)
[2019-08-15] MEDS: PULMICORT INH SCH ×2 (08:13→19:46)
[2019-08-15 08:24] LABS: AGAP 8; ALB/GLOB RATIO 0.5; ALKALINE PHOSPHATASE 64 U/L (32-104); BUN 4 mg/dL (8-22); CALCIUM 8.3 mg/dL (8.8-10.2); CHLORIDE 98 mmol/L (98-107); COSMO 273; CREATININE 0.2 mg/dL (0.5-0.9); ESTIMATED GFR > 60; GLUCOSE 109 mg/dL (70-104); GOT 18 U/L (10-30); GPT 10 U/L (10-36); POTASSIUM 3.1 mmol/L (3.5-5.1); SODIUM 138 mmol/L (136-145); TCO2 32 mmol/L (25-35); TOTAL BILIRUBIN 0.22 mg/dL (0.20-1.00); TOTAL PROTEIN 5.8 g/dL (6.3-8.3)
[2019-08-15] MEDS: PEPCID PO SCH ×2 (09:06→21:58)
[2019-08-15] MEDS: MYSOLINE PO SCH (09:06)
[2019-08-15] MEDS: BACTROBAN CREAM TOP SCH ×3 (09:06→21:58)
[2019-08-15] MEDS: DILANTIN PO SCH ×3 (09:06→18:23)
[2019-08-15] MEDS: SENOKOT PO SCH ×2 (09:06→21:58)
[2019-08-15] MEDS: SOLU-MEDROL IV SCH (09:10)
[2019-08-15] MEDS ORDERED: POTASSIUM CHLORIDE 20% LIQUID PO ONE (09:24)
[2019-08-15] MEDS ORDERED: MAGNESIUM SULFATE 2 GM/S.W.I. 2 GM/50 ML IVPB IV ONE (09:24)
[2019-08-15] MEDS ORDERED: DULCOLAX PR ONE (10:47)
--- NOTE | 2019-08-15 13:31 | PROVIDER PROGRESS NOTE ---
Progress Note Dr. Toledo Progress Note/Pulmonary and or critical care We appreciated progress of care, Complications, change in diagnosis, and instructions to patient under direct supervision of Dr. Toledo. Subjective: We note the level of consciousness, bed (chair) position, family presence (if any), level of lethargy, feeling of symptoms, and changes from baseline condition/symptom. The patient is awake. She just had a bowel movement. She is tachypneic and tachycardia. She is on NRB. Objective: Vital Signs: We reviewed EMR current values for Pulse rate, Blood pressure, Pulse rate, respiratory rate and Pulse oximetry. Also noted other values and trends if pr esent (e.g. I/O, CVP). Vital Signs 08/14/19 16:49 08/14/19 19:30 08/14/19 20:00 Temperature 98.8 F 99.0 F Pulse Rate 95 H 93 H 100 H Respiratory Rate 22 20 Blood Pressure 103/52 137/57 O2 Sat by Pulse Oximetry 99 95 93 L 08/15/19 04:00 08/15/19 07:55 08/15/19 08:00 Temperature 99.2 F 98.0 F Pulse Rate 114 H 99 H 99 H Respiratory Rate 20 22 Blood Pressure 160/71 133/61 O2 Sat by Pulse Oximetry 95 94 L 97 08/15/19 11:16 08/15/19 12:37 Temperature 98.1 F Pulse Rate 114 H 111 H Respiratory Rate 22 21 Blood Pressure 115/47 O2 Sat by Pulse Oximetry 92 L 95 Intake & Output 08/14/19 08/15/19 08/15/19 19:59 07:59 19:59 Intake Total 1059 50 / 50 Output Total 400 / 1400 1000 / 1400 Balance 660 / 573 -87 / 573 50 / 50 Intake: Intake, IV Amount 900 / 1813 913 / 1813 Intake, IVPB 50 / 50 Intake, Oral Amount 160 / 160 Output: Output, Urine Stephenson Amount 400 / 1400 1000 / 1400 Other: Percent of Meal Consumed Bites Only Number of Bowel Movements 0 Physical Examination: General: Lying in bed with no acute distress noted. HEENT: Trachea midline. Mucus pink and moist. Chest: Labored. Increased work of breathing. Symmetrical excursion. Diminished breathing sounds with left worse than right. CVS: S1 and S2 noted. Abdomen: Soft. Flat. Non-tender. Bowel sounds present. Extremities: BLE puffy. Neuro: A/Ox2; speech fluent; follow simple commands at times; weakness present. Labs and Radiology: Reviewed available labs and radiology values available at time of EMR review. Laboratory Results 08/15/19 08/15/19 08/15/19 06:48 06:48 06:48 WBC 13.56 H RBC 3.29 L Hgb 8.6 L Hct 28.4 L MCV 86.3 MCH 26.1 L MCHC 30.3 L RDW Std Deviation 16.1 H Plt Count 412 H MPV 8.9 Immature Gran % (Auto) 2.0 H Neut % (Auto) 78.5 H Lymph % (Auto) 10.0 L [place] % (Auto) 7.6 Eos % (Auto) 1.8 Baso % (Auto) 0.1 Immature Gran # (Auto) 0.27 H Neut # (Auto) 10.65 H Lymph # (Auto) 1.36 [place] # (Auto) 1.03 H Eos # (Auto) 0.24 Baso # (Auto) 0.01 Sodium 138 Potassium 3.1 L Chloride 98 Carbon Dioxide 32 Anion Gap 8 BUN 4 L Creatinine 0.2 L Estimated GFR/1.73 m2 > 60 BUN/Creatinine Ratio 20 Glucose 109 H D Calculated Osmolality 273 Calcium 8.3 L Magnesium 1.4 L Total Bilirubin 0.22 AST 18 ALT 10 Alkaline Phosphatase 64 Total Protein 5.8 L Albumin 2.0 L Globulin 3.8 Albumin/Globulin Ratio 0.5 Dr. Toledo evaluated and additional note below. Evaluation time in minutes: 10 minutes Assessment: DNRI Respiratory Failure, hypoxic and hypercapnic Lung mass COPD Left pubic rami fracture Anorexia with protein calorie malnutrition Pneumonia, BLL UTI Plan Continue current treatment and supportive care per admitting and other teams on the case. Antibiotics Steroids Bronchodilators Appropriate DVT and GI prophylaxis Input was appreciated from Admitting MD and other teams on the case.
--- NOTE | 2019-08-15 14:46 | PROGRESS NOTE ---
DATE: 08/15/2019 SUBJECTIVE: This patient seems to be doing a little bit better today compared with yesterday. She is oriented to person. She is able to recognize family members at the bedside and she knows she is in the hospital. She is not oriented to time. Culture showed pseudomonal pneumonia sensitive to cefepime and also showed Escherichia coli in the urine, which is pansensitive, so I will stop the Zyvox and continue only with cefepime. I discussed the case with a power of managing attorney, which is at the bedside and they are trying to decide which hospice will take this patient. OBJECTIVE: Vital Signs: Temperature 98.1 degrees, pulse 111, respiratory rate 21, blood pressure 115/47, oxygen saturation 95% on a nonrebreathing mask. HEENT: Head normocephalic, no trauma. Neck: Supple no JVD. No masses. Central trachea. Chest: Decreased breath sounds on the left side with crepitus, bilateral lower lobe rhonchi, coarse breath sounds on the left side. Abdomen: Soft, nontender, nondistended. No hepatosplenomegaly. Extremities: No clubbing, no cyanosis. Neurological: The patient is sleepy, but arousable. She was able to answer some of my questions. She is oriented to place and person. She is able to recognize her friend/power of managing attorney at the bedside. She does have generalized weakness. LABORATORY: WBC 13.6, hemoglobin 8.6, hematocrit 28.4, platelet 412,000. Sodium 138, potassium 3.1, chloride 98, bicarbonate 32, BUN 4, creatinine 0.2, glucose 109, calcium 8.3, magnesium 1.4 albumin, albumin 2. ASSESSMENT AND PLAN: 1. Sepsis due to pneumonia. We will continue with broad-spectrum antibiotics but I will stop the Zyvox since this patient's sputum culture showed Pseudomonas, continue breathing treatment, oxygen supplementation. 2. Urinary tract infection due to Escherichia coli, continue with antibiotics. 3. Left upper lobe mass and postobstructive pneumonitis, likely this is malignancy. Case has been discussed with her power of managing attorney who has been always at the bedside. The patient is DO NOT RESUSCITATE. Palliative Care consulted and I believe they are trying to decide what hospice will take care of her. 4. Bilateral lower lobe pneumonia due to Pseudomonas as per #1. 5. History of chronic obstructive pulmonary disease, continue home O2 breathing treatment. 6. Elevated D-dimer with negative CT angiogram, no pulmonary embolism. 7. History of seizures. Continue with Dilantin. 8. Gastroesophageal reflux disease. Continue with ranitidine. 9. Frequent falls, aware. 10. Left pubic rami fracture, we will just monitor these. No intervention. 11. Anorexia with severe protein calorie malnutrition, aware. Continue with her diet. 12. This patient is hard of hearing. She has cataracts and macular degeneration as well. 13. This patient is DNR level 1. 14. Poor prognosis. The family is trying to look for a hospice company, palliative care on board. The she seems to be feeling a little bit better. cc: Frank Cho MD
[2019-08-16] MEDS: TYLENOL PO PRN (01:26)
[2019-08-16] MEDS: XOPENEX NEB INH SCH ×6 (03:36→23:13)
[2019-08-16] MEDS: ATROVENT NEB INH SCH ×6 (03:36→23:13)
[2019-08-16] MEDS: NS + KCL 20 MEQ 1,000 ML IV SCH ×2 (04:49→17:56)
[2019-08-16] MEDS: MAXIPIME 1 GM in NS 50 ML IV SCH ×2 (05:01→17:50)
--- NOTE | 2019-08-16 06:23 | Diag Imaging Result Doc PS360 ---
EXAM: CHEST-PORTABLE HISTORY: dyspnea TECHNIQUE: Single view COMPARISON: 08/11/2019 FINDINGS: There is near complete opacification of the left hemithorax. Infiltrates and atelectasis are more prominent than on the prior study. There is at least a moderate to large left pleural effusion. Increased interstitial markings in the right lung are slightly more prominent. Mediastinum is shifted from right to the left. IMPRESSION: Interval worsening Electronically signed by Lemuel Shepherd 08/16/2019 6:21 AM
[2019-08-16 07:18] LABS: BASO# 0.02 X1000 (0.0-0.2); BASO% 0.2 % (0.0-0.8); EOS# 0.39 X1000 (0.0-0.7); EOS% 3.1 % (0.0-10.0); HEMATOCRIT 28.4 % (37.0-47.0); HEMOGLOBIN 8.5 g/dL (12.0-16.0); IMM GRAN# 0.28 X1000 (0.0-0.04); IMM GRAN% 2.2 % (0.0-0.5); LYMPH# 1.26 X1000 (1.2-3.4); LYMPH% 9.9 % (20.5-51.1); MCH 26.2 PG (27-31); MCHC 29.9 g/dL (33-37); MCV 87.4 FL (81-99); MONO# 1.03 X1000 (0.11-0.59); MONO% 8.1 % (1.7-9.3); MPV 8.8 FL (7.4-10.4); NEUT# 9.69 X1000 (1.4-6.5); NEUT% 76.5 % (42.2-75.2); PLT 441 X1000 (130-400); RBC 3.25 XMIL (4.2-5.4); RDW 16.5 % (11.5-14.5); WBC 12.67 X1000 (4.8-10.8)
[2019-08-16] MEDS: PULMICORT INH SCH ×2 (07:42→19:50)
[2019-08-16] MEDS: MUCOMYST 20% INH SCH ×2 (07:42→19:50)
[2019-08-16 07:47] LABS: MAGNESIUM 1.7 mg/dL (1.5-2.7); PHOSPHORUS 2.6 mg/dL (2.7-4.5)
[2019-08-16 07:50] LABS: AGAP 2; ALB/GLOB RATIO 0.5; ALBUMIN 1.9 g/dL (3.5-5.0); ALKALINE PHOSPHATASE 54 U/L (32-104); BUN 5 mg/dL (8-22); CHLORIDE 104 mmol/L (98-107); COSMO 285; CREATININE 0.3 mg/dL (0.5-0.9); ESTIMATED GFR > 60; GLUCOSE 112 mg/dL (70-104); GOT 15 U/L (10-30); GPT 9 U/L (10-36); POTASSIUM 4.1 mmol/L (3.5-5.1); SODIUM 144 mmol/L (136-145); TCO2 38 mmol/L (25-35); TOTAL BILIRUBIN 0.18 mg/dL (0.20-1.00); TOTAL PROTEIN 5.5 g/dL (6.3-8.3)
[2019-08-16] MEDS: SENOKOT PO SCH ×2 (09:16→21:45)
[2019-08-16] MEDS: MYSOLINE PO SCH (09:16)
[2019-08-16] MEDS: PEPCID PO SCH ×2 (09:16→21:44)
[2019-08-16] MEDS: DILANTIN PO SCH ×3 (09:16→17:50)
[2019-08-16] MEDS: BACTROBAN CREAM TOP SCH ×3 (09:17→17:50)
[2019-08-16] MEDS: SOLU-MEDROL IV SCH (09:17)
--- NOTE | 2019-08-16 11:01 | PROGRESS NOTE ---
DATE: 08/16/2019 SUBJECTIVE: No big changes compared with yesterday. X-ray looks worse today. All the left side is basically opacified. She has a pseudomonas pneumonia and E. coli urinary tract infection as well. On top of that, she has a big mass on the left side. The power of associate attorney has requested not to do any kind of procedure since she has been a sick person basically all her live, and she is extremely weak and cachectic, which I agree with that. I have requested the palliative care team to evaluate this patient, along with the family to see if we can discharge this patient home with hospice so she can be more comfortable. OBJECTIVE: Vital Signs: Temperature 97.7 degrees, pulse 107, respiratory rate 18, blood pressure 129/62, oxygen saturation 93 for a nonbreathing mask. HEENT: Head normocephalic. No trauma. Neck: Supple. No JVD. No masses. Central trachea. Chest: Decreased breath sounds on the left side with crepitus and crackles, rhonchi. Abdomen: Soft. Extremities: No edema. No clubbing. Neurological Examination: This patient is sleepy but arousable. She is able to answer some of my questions, especially name. She is able to recognize her friend/family member at the bedside. Laboratory: WBC 12.6, hemoglobin 8.5, hematocrit 28.4, platelets 441,000. Sodium 144, potassium 4.1, chloride 104, bicarbonate 38, BUN 5, creatinine 0.3, glucose 112, calcium 8, phosphorus 2.6, magnesium 1.7, albumin 1.9. ASSESSMENT AND PLAN: 1. Sepsis due to pneumonia. Continue broad-spectrum antibiotics. Zyvox has been stopped. Culture showed pseudomonas. Continue with the same management. 2. Urinary tract infection due to Escherichia coli. Continue with antibiotics. 3. Left upper lobe mass and postobstructive pneumonitis/pneumonia and effusion. Case has been discussed with the power of associate attorney. They do not want to do any kind of procedure. This patient is Do Not Resuscitate and I believe she is hospice appropriate at this moment. 4. Bilateral lower lobe pneumonia due to pseudomonas, as per #1. 5. History of chronic obstructive pulmonary disease. Continue with oxygen. She has been on home oxygen as well. 6. Elevated D-dimer with negative CT angiogram. No pulmonary embolism. 7. History of seizures. Continue with Dilantin. 8. Gastroesophageal reflux disease. Continue with ranitidine. 9. Frequent falls. Aware. She is weak. 10. Left pubic rami fracture. We will monitor. No intervention. 11. Anorexia with severe protein calorie malnutrition. Aware. Continue with the same diet. She is not eating too much. 12. This patient is hard of hearing. She has cataracts and macular degeneration as well. 13. This patient is Do Not Resuscitate level 1. 14. Poor prognosis. I discussed the case with the power of associate attorney, which has been always at the bedside. She has been taking good care of this patient. I told this person that this patient is hospice appropriate and likely she will need to go home soon so she can be more comfortable. Palliative care on board. I think she can go home today if possible. cc: Frank Cho MD
--- NOTE | 2019-08-16 15:58 | PROVIDER PROGRESS NOTE ---
Progress Note Dr. Toledo Progress Note/Pulmonary and or critical care We appreciated progress of care, Complications, change in diagnosis, and instructions to patient under direct supervision of Dr. Toledo. Subjective: We note the level of consciousness, bed (chair) position, family presence (if any), level of lethargy, feeling of symptoms, and changes from baseline condition/symptom. The patient is awake. She is happy to go home. She is on NRB in no acute distress. Sister at the bedside. Objective: Vital Signs: We reviewed EMR current values for Pulse rate, Blood pressure, Pulse rate, respiratory rate and Pulse oximetry. Also noted other values and trends if present (e.g. I/O, CVP). Vital Signs 08/15/19 19:47 08/15/19 20:00 08/16/19 04:00 Temperature 98.2 F 98.7 F Pulse Rate 95 H 111 H 96 H Respiratory Rate 18 Blood Pressure 122/57 120/61 O2 Sat by Pulse Oximetry 99 96 98 08/16/19 07:43 08/16/19 07:53 08/16/19 11:20 Temperature 97.7 F Pulse Rate 94 H 107 H 92 H Respiratory Rate 16 18 30 H Blood Pressure 129/62 O2 Sat by Pulse Oximetry 95 93 L 99 08/16/19 12:00 08/16/19 16:00 08/16/19 16:12 Temperature 97.9 F 97.5 F L Pulse Rate 95 H 87 89 Respiratory Rate 18 18 18 Blood Pressure 110/57 115/54 O2 Sat by Pulse Oximetry 98 100 100 Intake & Output 08/15/19 08/16/19 08/16/19 19:59 07:59 19:59 Intake Total 1520 / 2432 912 / 2432 Output Total 1099 950 / 950 Balance 420 / 482 62 / 482 -950 / -950 Intake: Intake, IV Amount 900 / 1812 912 / 1812 Intake, IVPB 100 / 100 Intake, Oral Amount 520 / 520 Output: Output, Urine Stephenson Amount 1099 950 / 950 Other: Percent of Meal Consumed Bites Only Number of Bowel Movements 1 Physical Examination: General: Lying in bed with no acute distress noted. HEENT: Mucus pink and moist. Chest: Labored. Increased work of breathing. Symmetrical excursion. Diminished breathing sounds with left worse than right. Insp. and exp. Wheezing RML and RLL. CVS: S1 and S2 noted. Abdomen: Soft. Flat. Non-tender. Bowel sounds present. Extremities: BLE puffy. Neuro: A/Ox2; speech fluent; follow simple commands at times; weakness present. Labs and Radiology: Reviewed available labs and radiology values available at time of EMR review. Laboratory Results 08/16/19 08/16/19 08/16/19 06:41 06:41 06:41 WBC 12.67 H RBC 3.25 L Hgb 8.5 L Hct 28.4 L MCV 87.4 MCH 26.2 L MCHC 29.9 L RDW Std Deviation 16.5 H Plt Count 441 H MPV 8.8 Immature Gran % (Auto) 2.2 H Neut % (Auto) 76.5 H Lymph % (Auto) 9.9 L [place] % (Auto) 8.1 Eos % (Auto) 3.1 Baso % (Auto) 0.2 Immature Gran # (Auto) 0.28 H Neut # (Auto) 9.69 H Lymph # (Auto) 1.26 [place] # (Auto) 1.03 H Eos # (Auto) 0.39 Baso # (Auto) 0.02 Sodium 144 Potassium 4.1 D Chloride 104 Carbon Dioxide 38 H Anion Gap 2 BUN 5 L Creatinine 0.3 L Estimated GFR/1.73 m2 > 60 BUN/Creatinine Ratio 17 Glucose 112 H Calculated Osmolality 285 Calcium 8.0 L Phosphorus 2.6 L Magnesium 1.7 Total Bilirubin 0.18 L AST 15 ALT 9 L Alkaline Phosphatase 54 Total Protein 5.5 L Albumin 1.9 L Globulin 3.6 Albumin/Globulin Ratio 0.5 Dr. Toledo evaluated and additional note below. Evaluation time in minutes: 10 minutes Assessment: DNR1 Respiratory failure, hypoxic and hypercapnic Lung mass with BLL pneumonia, atelectasis, moderate to large pleural effusion and mediastinum shifted to left UTI COPD Left pubic rami fracture Anorexia with protein calorie malnutrition Plan Continue current treatment and supportive care per admitting and other teams on the case. Antibiotics Steroids Bronchodilators Appropriate DVT and GI prophylaxis Discharge planning per hospitalist Input was appreciated from Admitting MD and other teams on the case.
[2019-08-17] MEDS: ATROVENT NEB INH SCH ×3 (03:30→11:45)
[2019-08-17] MEDS: XOPENEX NEB INH SCH ×3 (03:30→11:45)
[2019-08-17] MEDS: MAXIPIME 1 GM in NS 50 ML IV SCH (05:23)
[2019-08-17 07:33] LABS: BASO# 0.03 X1000 (0.0-0.2); BASO% 0.2 % (0.0-0.8); EOS# 0.56 X1000 (0.0-0.7); EOS% 3.8 % (0.0-10.0); HEMATOCRIT 28.3 % (37.0-47.0); HEMOGLOBIN 8.6 g/dL (12.0-16.0); IMM GRAN% 2.7 % (0.0-0.5); LYMPH# 1.61 X1000 (1.2-3.4); LYMPH% 10.9 % (20.5-51.1); MCH 26.6 PG (27-31); MCHC 30.4 g/dL (33-37); MCV 87.6 FL (81-99); MONO# 1.18 X1000 (0.11-0.59); MPV 8.8 FL (7.4-10.4); NEUT# 10.98 X1000 (1.4-6.5); NEUT% 74.4 % (42.2-75.2); PLT 537 X1000 (130-400); RBC 3.23 XMIL (4.2-5.4); RDW 16.5 % (11.5-14.5); WBC 14.76 X1000 (4.8-10.8)
[2019-08-17 08:06] LABS: AGAP 9; ALB/GLOB RATIO 0.6; ALBUMIN 2.2 g/dL (3.5-5.0); ALKALINE PHOSPHATASE 68 U/L (32-104); BUN 5 mg/dL (8-22); CALCIUM 8.4 mg/dL (8.8-10.2); CHLORIDE 98 mmol/L (98-107); COSMO 279; CREATININE 0.3 mg/dL (0.5-0.9); ESTIMATED GFR > 60; GLUCOSE 103 mg/dL (70-104); GOT 27 U/L (10-30); GPT 13 U/L (10-36); POTASSIUM 4.1 mmol/L (3.5-5.1); SODIUM 141 mmol/L (136-145); TCO2 34 mmol/L (25-35); TOTAL PROTEIN 6.1 g/dL (6.3-8.3)
[2019-08-17] MEDS: MUCOMYST 20% INH SCH (08:18)
[2019-08-17] MEDS: PULMICORT INH SCH (08:18)
[2019-08-17 08:19] VITALS: BP 134/66
[2019-08-17] MEDS: NS + KCL 20 MEQ 1,000 ML IV SCH (09:44)
[2019-08-17] MEDS: MYSOLINE PO SCH (09:46)
[2019-08-17] MEDS: SENOKOT PO SCH (09:46)
[2019-08-17] MEDS: PEPCID PO SCH (09:46)
[2019-08-17] MEDS: DILANTIN PO SCH ×2 (09:46→12:36)
[2019-08-17] MEDS: SOLU-MEDROL IV SCH (09:46)
[2019-08-17] MEDS: BACTROBAN CREAM TOP SCH ×2 (09:47→12:37)
--- NOTE | 2019-08-18 18:24 | DISCHARGE SUMMARY ---
ADMISSION DATE: 08/11/2019 DISCHARGE DATE: 08/17/2019 DISCHARGE DIAGNOSES: 1. Sepsis due to pneumonia. 2. Urinary tract infection due to Escherichia coli. 3. Left upper lobe mass and postobstructive pneumonitis/pneumonia and effusion. 4. 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 5. Bilateral lower lobe pneumonia due to Pseudomonas. 6. History of chronic obstructive pulmonary disease. 7. Elevated D-dimer with negative CT angiogram. 8. History of seizures. 9. Gastroesophageal reflux disease. 10. Frequent falls. 11. Left pubic rami fracture. 12. Anorexia with severe protein calorie malnutrition. 13. This patient is hard of hearing, with cataracts and macular degeneration as well. 14. DO NOT RESUSCITATE level 1. 15. Poor prognosis. PROCEDURES PERFORMED: 1. Chest x-ray dated 08/11/2019 - Impression: Pulmonary edema versus pneumonia, pleural and parenchymal opacity on the left, advise comparison with previous studies if available. 2. CT angiogram of the chest dated 08/11/2019: Bilateral lower lobe pneumonia, left upper lobe mass and postobstructive pneumonitis. 3. Extremity venous study dated 08/12/2019: No obvious superficial or deep venous thrombosis. 4. Chest x-ray dated 08/16/2019 - Impression: Interval worsening. There is near complete opacification of the left hemithorax. HOSPITAL COURSE: This is a 73-year-old female with a past medical history of COPD on home O2, meningitis when she was 1 years old which has caused her to have seizures, with her last one being 4 months ago. Also has frequent falls. She is hard of hearing. She has cataracts and macular degeneration. Apparently 2 days before admission, she had a fall in the bathroom, and since then she has really not gotten around well. She was admitted on 08/11/2019. She lives with her sister, who is also her power of forensic pathologist, and she noticed that she was very weak and short of breath. She called the ambulance ,and they found that her oxygen was low in the 80s, so they brought this patient to the hospital. They also noted that she has been having some phlegm that is really green and thick. She denied any fever. The sister states that the day before admission, she called the patient's physician, who then called her in an antibiotic, cefdinir, which she initially started the night before. She took her last doses the night before admission and the morning of admission. Images revealed that she had a fracture of the left pubic rami, and chest x-ray showed pulmonary edema versus pneumonia, especially on the left side. She was started on antibiotics. Orthopedic Surgery evaluated this patient, and they basically stated that the patient will be treated medically, but no intervention at this time. CT scan of the chest showed a large mass at the level of the left upper part of the lung, and also postobstructive pneumonitis and pneumonia bilaterally. I had a long conversation with the sister who was at the bedside, and she has decided to put this patient DO NOT RESUSCITATE. On the other hand, she states that since this looks like malignancy, she does not want to do any kind of invasive procedure, and at the end she decided to go ahead and take this patient home with hospice. The Pulmonary department also has been consulted and follows this patient closely. PHYSICAL EXAMINATION: Vital Signs: Temperature 97.7, pulse 102, respiratory rate 18, blood pressure 134/66, oxygen saturation 96% on a nonrebreathing mask. HEENT: Head normocephalic, no trauma. PERRLA. Neck: Supple. No JVD. No masses. Central trachea. Chest: Decreased breath sounds on the left side with crepitus and crackles, rhonchi, some crepitus at the right base as well. Abdomen: Soft. Extremities: No edema. No clubbing. No cyanosis. Neurologic: The patient is awake. She is following commands on and off. She is hard of hearing. She is oriented to person, and she is able to recognize her family member at the bedside. LABORATORY: WBCs 14.7, hemoglobin 8.6, hematocrit 28.3, platelets 537. Sodium 141, potassium 4.1, chloride 98, bicarbonate 34, BUN 5, creatinine 0.3, glucose 103, calcium 8.4, albumin 2.2. DISCHARGE MEDICATIONS: 1. Acetaminophen 650 mg p.o. every 4 hours as needed. 2. Mucomyst 20%, 3 mL inhaler twice a day. 3. Fosamax 30 mg p.o. every 7 days. 4. Benzonatate 200 mg p.o. t.i.d. 5. Pulmicort 0.5 mg inhaler twice a day. 6. Cefdinir 300 mg p.o. b.i.d. 7. Atrovent 0.5 mg inhaler every 4 hours. 8. Xopenex 1.25 mg inhaler every 4 hours. 9. Bactroban cream 3 times a day. 10. Promethazine syrup 2 teaspoons p.o. as needed for cough. 11. Phenytoin 100 mg p.o. t.i.d. 12. Primidone 250 mg p.o. daily. 13. Ranitidine 150 mg p.o. b.i.d. 14. The rest of the medications will be provided by hospice care. cc: Frank Cho MD
== END 2019-08-17 14:22 | disposition hospice, home (50) | DRG 871 ==
LOC: ED 14:49 → EDIPHOLD 18:27 → 3N 08-12 14:53
PROVIDERS: ATTEND Internal Medicine